=== PATIENT | female | born 1990 | race Caucasian/White ===

== ENCOUNTER 2019-03-10 10:30 | Emergency (ER) | payer OTHER ==
[~2019-03-10] VITALS: Wt 43.6 kg
--- NOTE | 2019-03-10 11:48 | ERD ---
ER Documentation Chief Complaint Chief Complaint LEFT ANKLE PAIN/INJURY HPI 28-year-old female, presents the emergency department, complaining of left ankle pain after a forced inversion injury that occurred yesterday while the patient was rollerskating. She denies distal weakness, numbness or tingling. The pain is dull, constant, 6/10. ROS All systems reviewed and are negative except as per history of present illness. Medications Home Meds Active Scripts Ibuprofen* (Motrin*) 600 Mg Tab, 600 MG PO Q6H PRN for PAIN AND OR ELEVATED TEMP, #20 TAB Prov:RUIZ RAIN MD 03/10/19 PMhx/Soc Hx Alcohol Use: No Hx Substance Use: No Smoking Status: Never smoker FmHx Family History: No diabetes, No coronary disease Physical Exam Vitals Vital Signs Date Temp Pulse Resp B/P (MAP) Pulse Ox O2 O2 Flow FiO2 Time Delivery Rate 03/10/19 98.3 74 18 107/74 99 10:37 (85) Physical Exam Const: No acute distress Head: Atraumatic Eyes: Normal Conjunctiva ENT: Normal External Ears, Nose and Mouth. Neck: Full range of motion. No meningismus. Resp: Clear to auscultation bilaterally Cardio: Regular rate and rhythm, no murmurs Abd: Soft, non tender, non distended. Normal bowel sounds Skin: No petechiae or rashes Back: No midline or flank tenderness Ext: Left lateral malleolus: Edema and tenderness to palpation, full passive range of motion, distal neurovascular exam intact. No cyanosis, or edema Neur: Awake and alert Psych: Normal Mood and Affect Procedures/MDM Acute left ankle pain: no red flags. Differential diagnosis include but not limited to: Ankle sprain/strain, ligament injury, arthritis; low suspicion for fracture, dislocation, septic arthritis. Neurovascular exam grossly intact. no clinical findings suggestive of acute infectious process, no deformity, no rashes. Pertinent Data: X-rays: No fracture or dislocation Physical examination and clinical presentation consistent most likely with left ankle sprain. During the ED course the patient received treatment with ankle stirrup presenting overall improvement of the symptoms. Results and clinical impression discussed with patient who agrees with management. The patient is stable to be treated outpatient and will be discharged home with recommendations for ice, rest and partial immobilization. NSAIDs 3 times daily for 5 days and close monitoring. Splint evaluation: Type: Ankle stirrup Location: left lower extremity Position: good alignment in anatomical position Neurovascular intact The patient was told that elevating the injured part will help reduce pain and swelling. Ice packs can decrease pain and promote healing when applied in the first two days after an injury. The pack should be dry on the outside. Apply it for half an hour three to four times a day. The patient was instructed to follow up with the primary care provider in the next 48h. If symptoms persist, worsen or new symptoms develop, then patient should return to the ED immediately. Instructions explained and given to patient with acknowledgment and demonstrated understanding. Disclaimer: Inadvertent spelling and grammatical errors are likely due to EHR/dictation software use and do not reflect on the overall quality of patient care. Also, please note that the electronic time recorded on this note does not necessarily reflect the actual time of the patient encounter. Departure Diagnosis: Primary Impression: Left ankle sprain Condition: Stable Patient Instructions: Self-Care for Strains and Sprains Additional Instructions: Thank you very much for allowing us to participate in your care. Your health and safety is our top priority at [facility]. The evaluation in the emergency department has been done to rule out an acute emergency, therefore, chronic conditions like malignancy or other diseases have not been evaluated; therefore, you need to follow up with a primary care provider in the next 48h. If symptoms persist, worsen or new symptoms develop, then patient should return to the ED immediately. Call your primary care doctor TOMORROW for an appointment during the next 2-4 days and bring all the information provided. Have prescriptions filled and follow precisely the directions on the label. If the symptoms get worse and your provider is unavailable, return to the Emergency Department immediately. RUIZ RAIN MD Mar 10, 2019 11:48
[2019-03-10] MEDS ORDERED: IBUP-1542 PO (12:52)
[2019-03-10 13:14] VITALS: BP 107/70; PULSE 70; RESP 18
== END 2019-03-10 13:07 | disposition home or self-care (01) ==
LOC: FTE 10:30
DX: S93.402A Sprain of unspecified ligament of left ankle, initial encounter (principal); X50.1XXA Overexertion from prolonged static or awkward postures, initial encounter; Y92.9 Unspecified place or not applicable
CPT/HCPCS: 73610; Z7502